=== PATIENT | male | born 1980 | race Caucasian/White ===

== ENCOUNTER 2016-12-29 10:28 | Emergency (ER) | payer OTHER ==
[~2016-12-29] VITALS: Ht 170.2 cm; Wt 73.0 kg
[2016-12-29 10:37] VITALS: TEMP 36.5; Ht 170.2 cm; Wt 73.0 kg
[2016-12-29] MEDS ORDERED: LRS20 PO (10:57)
[2016-12-29] MEDS ORDERED: CARB200T PO ×2 (10:57)
[2016-12-29] MEDS ORDERED: SERT50TA PO (10:57)
[2016-12-29] MEDS ORDERED: MELA1TAB3 PO (10:57)
[2016-12-29] MEDS ORDERED: CALC500C70 PO (10:57)
[2016-12-29] MEDS ORDERED: CETI10TA10 PO (10:57)
[2016-12-29] MEDS ORDERED: LACO100T PO (10:57)
[2016-12-29] MEDS ORDERED: BACL20TA PO (10:57)
[2016-12-29 11:23] VITALS: O2SAT 99
[2016-12-29 11:42] LABS: BASO % 0.3 %; BASO ABS # 0.02 K/uL (0-0.2); COMPLETE YES; EOS % 1.8 %; IG% 0.3 %; LYMPH % 19.2 %; LYMPH ABS # 1.28 K/uL (1.2-3.4); MEAN CELL VOLUME 89.8 fL (80-100); MEAN CORPUSCULAR HEMOGLOBIN 30.8 pg (25-34); MEAN CORPUSCULAR HGB CONC 34.3 g/dl (32-36); MEAN PLATELET VOLUME 9.8 fL (7.4-10.4); MONO % 8.2 %; NEUT % 70.2 %; PLATELET COUNT 244 K/uL (130-400); WHITE BLOOD COUNT 6.68 K/uL (4.8-10.8)
[2016-12-29 11:53] LABS: PARTIAL THROMBOPLASTIN RATIO 1.2; PROTHROMBIN TIME (PATIENT) 10.5 SECONDS (9.0-12.0)
[2016-12-29 12:00] LABS: BUN/CREATININE RATIO 27.4 (10-20); CALCIUM 8.9 mg/dl (8.5-10.1); CREATININE 0.79 mg/dl (0.60-1.40); MAGNESIUM 2.2 mg/dl (1.8-2.4); POTASSIUM 4.2 mmol/L (3.5-5.1)
[2016-12-29 12:11] LABS: THYROID STIMULATING HORMONE 1.89 uIu/ml (0.300-4.500)
[2016-12-29 12:24] VITALS: BP 139/96
--- NOTE | 2016-12-29 12:42 | EMERGENCY ROOM VISIT NOTE ---
History First contact with patient: 10:55 Chief Complaint: SEIZURE Stated Complaint: PETITIE SEIZURE Nursing Triage Summary: pt brought in by head of delegates and a coach mechanic for [employer] coach mechanic states he did not eat much for breakfast then went to watch a basketball game. at the game patient fell asleep immediately upon arrival to game. around 1010 coach mechanic attempted to wake patient up and was hard to get him awake. pt was unresponsive. coach mechanic called medics over and BP was 90/72. around 1025 patient started waking up. In triage patient states he feels fine. last seizure was saturday. pt did take all medicatins accordingly. pt has hx of seizures History of Present Illness The patient is a 36 year old male who presents to the Emergency Room via private vehicle with complaints of "petite seizure". The patient states he has a history of seizures, with his most recent being Saturday. Most recently , today around 10:10 AM he was watching a basketball game at the [employer], and fell asleep in the prone position. His coach mechanic and Head of Delegation for [employer] accompany the patient. They state that they tried to wake him up, and he was difficult to arouse. When I finally able to wake him up, he had very slurred speech, was unable to see, as blood pressure was found to be 90/72. They state that he started coming to, and then his vision came back. It was stated that he has had the same symptoms in the past, most notably Saturday, and then at his house upon return [place]. It was stated by the accompanying individuals, that they had spoken with the individuals mother stating that he has had the same exact symptoms with previous seizures. He follows at [place] with specialists. It was stated that there was no tonic-clonic activity to this. He did not bite his tongue. He did not strike his head. He was not incontinent. He currently states that he feels fine, and has been taking all of his meds. The accompanying individual state that they had to bring him here to be evaluated as this occurred at a section event, and it appears that previous seizures are well managed at home without having to go to the hospital. Review of Systems A complete 10-point Review of Systems was discussed with the patient, with pertinent positives and negatives listed in the History of Present Illness. All remaining Review of Systems questions can be considered negative unless otherwise specified. Past Medical/Surgical History Seizures Family History Seizures Social History Smoking Status: Never Smoker Social History: Patient lives at home with mother. He is currently employed. Current/Historical Medications Scheduled Baclofen (Lioresal), 20 MG PO BID Baclofen (Baclofen), 30 MG PO HS Calcium/Vitamin D (Os-Vladimir 500 Plus D), 1 TAB PO DAILY Carbamazepine (Tegretol), 600 MG PO QAM Carbamazepine (Tegretol), 800 MG PO QPM Cetirizine Hcl (Zyrtec), 10 MG PO DAILY Lacosamide (Vimpat), 100 MG PO BID Melatonin-Pyridoxine (Melatonin), 1 TAB PO HS Sertraline (Zoloft), 50 MG PO DAILY Allergies Coded Allergies: Latex (Unverified Allergy, Unknown, ., 12/29/16) Physical Exam Vital Signs Date Time Temp Pulse Resp B/P (MAP) Pulse Ox O2 Delivery O2 Flow Rate FiO2 12/29/16 13:00 80 18 99 12/29/16 12:24 72 16 139/96 99 Room Air 12/29/16 12:08 71 12/29/16 11:33 72 16 100 Room Air 12/29/16 11:23 99 Room Air 12/29/16 10:37 36.5 74 18 150/93 97 Room Air Physical Exam VITAL SIGNS - Vital signs and nursing notes were reviewed. Patient is afebrile , hypertensive 150/93, nontoxic tachycardic and is saturating well on room air 97%. GENERAL -36-year-old male appearing his stated age who is in no acute distress. Communicates well with provider and answers questions appropriately. SKIN - Without rashes. Unremarkable. HEAD - NC/AT. No mack signs or raccoons eyes. EYES - PERRL with EOMI bilaterally. Sclera anicteric. Palpebral conjunctiva pink and moist with no injection noted. EARS - No deformities of external structures noted on gross examination bilaterally. No pain elicited with palpation of the tragus bilaterally. External auditory canals without discharge or otorrhea. Tympanic membranes pearly zacarias without retraction or bulging. No fluid or purulent material visualized behind the TM. Handle of malleus, umbo, cone of light, pars tensa/ flaccid all easily visualized. No hemotympanum. NOSE - Midline and without cyanosis. No epistaxis or purulent drainage noted. Septum midline without deviation or septal hematoma noted. MOUTH/OROPHARYNX - Without perioral cyanosis. Buccal mucosa pink and moist and without leukoplakia. Tongue midline with equal elevation of palate bilaterally. No tonsillar hypertrophy, erythema, or exudates noted. Fair dentition noted. No evidence of damage to the tongue. NECK - Neck with FROM. Supple to palpation. No meningismus. LUNGS - Chest wall symmetric without accessory muscle use, intercostals retractions, or central cyanosis. Normal vesicular breath sounds CTA B/L. No wheezes, rales, or rhonchi appreciated. CARDIAC - RRR with S1/S2. No murmur, rubs, or gallops appreciated. EXTREMITIES - No clubbing or peripheral cyanosis. No pretibial edema present. +3 /5 radial, posterior tibial, and dorsalis pedis pulses palpated throughout. +5/ 5 strength noted in UE/LE bilaterally. There are bilateral foot/distal leg braces noted. NEUROLOGIC - Cranial nerves II through XII grossly intact. Sensory intact to light touch throughout. PSYCH - Pt is very pleasant and interacts well with examiner. Medical Decision & Procedures Laboratory Results 12/29/16 11:18 Red Blood Count 4.90, Mean Corpuscular Volume 89.8, Mean Corpuscular Hemoglobin 30.8, Mean Corpuscular Hemoglobin Concent 34.3, Mean Platelet Volume 9.8, Neutrophils (%) (Auto) 70.2, Lymphocytes (%) (Auto) 19.2, Monocytes (%) (Auto) 8.2, Eosinophils (%) (Auto) 1.8, Basophils (%) (Auto) 0.3, Neutrophils # (Auto) 4.69, Lymphocytes # (Auto) 1.28, Monocytes # (Auto) 0.55, Eosinophils # (Auto) 0.12, Basophils # (Auto) 0.02 12/29/16 11:18 Test 12/29/16 11:18 White Blood Count 6.68 K/uL (4.8-10.8) Red Blood Count 4.90 M/uL (4.7-6.1) Hemoglobin 15.1 g/dL (14.0-18.0) Hematocrit 44.0 % (42-52) Mean Corpuscular Volume 89.8 fL (80-100) Mean Corpuscular Hemoglobin 30.8 pg (25-34) Mean Corpuscular Hemoglobin Concent 34.3 g/dl (32-36) Platelet Count 244 K/uL (130-400) Mean Platelet Volume 9.8 fL (7.4-10.4) Neutrophils (%) (Auto) 70.2 % Lymphocytes (%) (Auto) 19.2 % Monocytes (%) (Auto) 8.2 % Eosinophils (%) (Auto) 1.8 % Basophils (%) (Auto) 0.3 % Neutrophils # (Auto) 4.69 K/uL (1.4-6.5) Lymphocytes # (Auto) 1.28 K/uL (1.2-3.4) Monocytes # (Auto) 0.55 K/uL (0.11-0.59) Eosinophils # (Auto) 0.12 K/uL (0-0.5) Basophils # (Auto) 0.02 K/uL (0-0.2) RDW Standard Deviation 42.7 fL (36.4-46.3) RDW Coefficient of Variation 13.0 % (11.5-14.5) Immature Granulocyte % (Auto) 0.3 % Immature Granulocyte # (Auto) 0.02 K/uL (0.00-0.02) Prothrombin Time 10.5 SECONDS (9.0-12.0) Prothromb Time International Ratio 1.0 (0.9-1.1) Activated Partial Thromboplast Time 30.6 SECONDS (21.0-31.0) Partial Thromboplastin Ratio 1.2 Anion Gap 5.0 mmol/L (3-11) Est Creatinine Clear Calc Drug Dose 122.0 ml/min Estimated GFR () 134.8 Estimated GFR (Non- 116.3 BUN/Creatinine Ratio 27.4 (10-20) Calcium Level 8.9 mg/dl (8.5-10.1) Magnesium Level 2.2 mg/dl (1.8-2.4) Total Bilirubin 0.3 mg/dl (0.2-1) Aspartate Amino Transf (AST/SGOT) 31 U/L (15-37) Alanine Aminotransferase (ALT/SGPT) 58 U/L (12-78) Alkaline Phosphatase 137 U/L (45-117) Total Protein 8.1 gm/dl (6.4-8.2) Albumin 4.0 gm/dl (3.4-5.0) Globulin 4.1 gm/dl (2.5-4.0) Albumin/Globulin Ratio 1.0 (0.9-2) Thyroid Stimulating Hormone (TSH) 1.890 uIu/ml (0.300-4.500) Medical Decision Patient was seen and evaluated as above. He presents to us today with a seizure , but is identical to previous seizures. He follows extensively with specialist in [place]. IV access was initiated, and the above workup was performed. The patient stated that he felt fine. The individuals accompanying him state that they brought him because this occurred at an event. CBC is unremarkable. Coagulation studies unremarkable. CMP reveals chloride high at 108, BUN high at 22, alkaline phosphatase high at 137, and globulin high at 4.1. TSH unremarkable. I suspect he is dehydrated, and recommend that he drinks plenty of fluids. I did speak with the individuals mother via phone after receiving lab results, who indicated that this sounds like a typical seizure for him, and I offered to speak with the established neurologist, however the mother preferred to follow-up in the upcoming week by calling them. I do believe this is reasonable. His EKG reveals normal sinus, rate of 72 bpm. No ectopy or ischemic change. No evidence of ST segment elevation MS. I do suspect that because the patient has a history of seizure disorder, that further workup is not warranted at this time. He appears otherwise healthy. At this time he appears stable for discharge, and may follow-up in the upcoming week with a neurologist. He is to return with worsening. He is to drink plenty of fluids to help with the dehydration suspected based upon elevated BUN. He was educated upon worrisome symptoms which to return, had questions prior to discharge, and was discharged home in good condition. In evaluation treatment this patient following differential diagnoses were entertained: MS, PE, normal seizure-like activity, brain tumor, among others. Impression Primary Impression: Seizure Departure Information Dispostion Home / Self-Care Condition GOOD Referrals No Doctor, Assigned (PCP) Patient Instructions My [facility] Additional Instructions You were seen in the emergency department following a seizure. Your blood work and EKG did not reveal any emergent causes at this time. It is recommended you have basic blood work repeated with your family doctor. There were only slight abnormalities noted today. Please return to the emergency department with any new/concerning symptoms. As we discussed please follow up with your neurologist in the upcoming week. Thank you for your time and have a great day!
--- NOTE | 2016-12-29 12:58 | EMERGENCY ROOM VISIT NOTE ---
ED Visit Note First contact with patient: 10:55 Patient seen and examined at bedside with physician's graphic design assistant and patient's history of present illness and evaluation discussed. Patient with reassuring labs here. Patient with known seizure history, and presentation today typical with usual seizures. Staff at bedside with special and backs, and mother called in over the phone and discussed with the physician graphic design assistant, especially the big staff and the patient as well as myself at the bedside. She is comfortable with the patient returning to his usual activities, continuing routine medications, and will follow closely with his neurologist. Patient had no recurrent seizures while in the emergency room, and was back to his usual baseline. Social back staff members comfortable taking responsibly for the patient and returning to his scheduled activities. Discussed symptoms to watch and return for, they verbalized understanding were in agreement.
[2016-12-29 13:00] VITALS: PULSE 80; O2SAT 99
== END 2016-12-29 13:00 | disposition home or self-care (01) ==
LOC: C.EDB 10:31 → C.EDC 13:00
DX: G40.909 Epilepsy, unspecified, not intractable, without status epilepticus (principal); Z79.899 Other long term (current) drug therapy; Z91.040 Latex allergy status; Z82.0 Family history of epilepsy and other diseases of the nervous system